=== PATIENT | female | born 2000 | race Caucasian/White ===

== ENCOUNTER 2025-09-27 09:48 | Emergency (ER) | payer BC, MEDICAID ==
[~2025-09-27] VITALS: Ht 167.6 cm; Wt 121.0 kg
[2025-09-27 09:52] VITALS: O2SAT 98
[2025-09-27] MEDS: BACITRACIN ZINC OINT UDPKT TOP ONE (10:54)
[2025-09-27] MEDS: LIDOCAINE HCL 1% 20ML VIAL INFIL ONE (10:54)
[2025-09-27] MEDS ORDERED: CEPH500T MT (11:54)
[2025-09-27] MEDS ORDERED: IBUP-1455 MT (11:54)
[2025-09-27] MEDS: IBUPROFEN 600MG TABLET PO ONE (12:07)
[2025-09-27] MEDS ORDERED: SULF1TAB48 MT (12:07)
[2025-09-27 12:11] VITALS: BP 115/70; PULSE 90; RESP 16; TEMP 36.8; O2SAT 98
== END 2025-09-27 12:22 | disposition home or self-care (01) ==
LOC: ER 09:48
DX: L02.31 Cutaneous abscess of buttock (principal)
CPT/HCPCS: 81025; 10060; 99283; J2003; Z7610 ×3